=== PATIENT | female | born 1985 | race Caucasian/White ===

== ENCOUNTER 2017-11-17 09:03 | Emergency (ER) | payer BC, OTHER ==
[2017-11-17 10:00] LABS: Urine Appearance Cloudy; Urine Blood 3+ (Negative); Urine Color Yellow; Urine Ketones Negative (Negative); Urine Protein 1+(30 mg/dL) (Negative); Urine Specific Gravity 1.021 (1.010-1.030); Urine Urobilinogen Negative (Negative)
--- NOTE | 2017-11-17 10:00 | RAD ---
INDICATION: Dizziness COMPARISON: None TECHNIQUE: PA and lateral dual-energy views were obtained. FINDINGS: Bones/Soft Tissues: There are no acute bony findings. Cardiomediastinal: The cardiomediastinal silhouette is normal. Lungs: There are no infiltrates. Pleura: There are no pleural effusions. Other: None IMPRESSION: NO ACTIVE DISEASE.
[2017-11-17 10:05] LABS: ABS Basophils 0 10^3/ul (0-0.2); ABS Eosinophils 0.1 10^3/ul (0-0.6); ABS Lymphocytes 1.5 10^3/ul (1.0-4.8); ABS Monocytes 0.4 10^3/ul (0-0.8); ABS Nucleated RBC 0 10^3/ul; Eosinophil % 1.1 % (0-6); Hematocrit 39 % (35-47); Hemoglobin 13.6 g/dl (12.0-16.0); Lymphocyte % 25.4 % (25-47); Mean Corpuscular HGB Conc 35 g/dl (31-36); Mean Corpuscular Hemoglobin 31 pg (27-31); Mean Corpuscular Volume 89 fL (80-97); Mean Platelet Volume 7 um3 (7.4-10.4); Nucleated Red Blood Cells % 0; Platelet Count 237 10^3/ul (150-450); Red Blood Count 4.41 10^6/ul (4.0-5.4); Red Cell Distribution Width 12 % (10.5-15)
[2017-11-17 10:11] LABS: INR 1.01 (0.77-1.02)
[2017-11-17 10:20] LABS: EGFR Non-African American 59.7 (>60)
--- NOTE | 2017-11-17 10:58 | PN ---
Progress Note - Progress Note Date of Service: 11/17/17 Note: pelvic exam PE: I preformed pelvic exam for Dr Ozuna. Exam was limited due to active bleeding. cervix actively bleeding. able to feel IUD string however was unable to visualize. Vaginal canal appears healthy without abnormality other than bleeding. No other discharge or inflammation noted. No bump/lumps. Normal external vaginal exam other than blood on labia. Mild discomfort on bimanual exam with uterus and ovary palpation.
--- NOTE | 2017-11-17 12:23 | RAD ---
INDICATION: Vaginal bleeding. IUD placement. COMPARISON: None TECHNIQUE: Longitudinal and transverse transvaginal scans of the pelvis were obtained. FINDINGS: Uterus: The uterus is normal in size. There are no focal masses. The uterus measures 8.2 x 4.6 x 5.0 cm. Endometrial thickness: The endometrial thickness is measured at 0.8 cm. The IUD is in the cervix.. Free fluid: There is no significant free fluid . Ovaries: The ovaries are normal in size. The right ovary measures 4.5 x 2.3 x 2.0 cm. The left ovary measures 4.2 x 2.9 x 2.2 cm. . Doppler interrogation demonstrates flow to each ovary. Other: None IMPRESSION: THE IUD HAS MIGRATED AND IS LOCATED WITHIN THE CERVIX
[2017-11-17] MEDS ORDERED: NS 0.9% 1000 ML* 1,000 ML IV ONE (12:29)
[2017-11-17 13:24] VITALS: BP 118/72
--- NOTE | 2017-11-19 12:23 | ED ---
Kartik Mix Angela, scribed for Monico Ozuna MD on 11/17/17 at 0927 . GI/ HPI - HPI Summary HPI Summary: This pt is a 32 y/o female [facility] c/o vaginal bleeding x3 days. Pt reports that she had her period for 3 weeks and since 11/15/17, pt has had heavy vaginal bleeding. SHe notes she had an IUD placed in July 2017 and contacted [facility] and was told that they are not sure of the placement. Pt notes she was not able to get an appointment for today as they do not have ultrasound today. She currently reports dizziness and generalized weakness. Denies abdominal cramping. Pt notes she had abd pain and diarrhea, attributed to IBS. PMHx includes IBS, IUD. - History of Current Complaint Chief Complaint: EDDizziness Time Seen by Provider: 11/17/17 09:15 Stated Complaint: DIZZY HEAVY MENSTRUAL BLEEDING Hx Obtained From: Patient Hx Last Menstrual Period: 04/07/15 Onset/Duration: Started Days Ago - 3, Still Present Timing: Lasting Days - 3 Current Severity: Severe Vaginal Bleeding Description: Bright Red Pain Intensity: 0 - no pain Associated Signs and Symptoms: Positive: Dizziness, Weakness. Negative: Nausea , Vomiting, Abdominal Pain Additional Signs & Symptoms: Positive: Vaginal Bleeding Aggravating Factor(s): Nothing Alleviating Factor(s): Nothing - Allergy/Home Medications Allergies/Adverse Reactions: Allergies Allergy/AdvReac Type Severity Reaction Status Date / Time No Known Allergies Allergy Verified 11/17/17 09:14 PMH/Surg Hx/FS Hx/Imm Hx Endocrine/Hematology History: Denies: Hx Diabetes, Hx Thyroid Disease Cardiovascular History: Denies: Hx Hypertension, Hx Pacemaker/ICD Respiratory History: Denies: Hx Asthma, Hx Chronic Obstructive Pulmonary Disease (COPD) GI History: Reports: Hx Irritable Bowel Denies: Hx Ulcer Sensory History: Denies: Hx Hearing Aid Psychiatric History: Denies: Hx Panic Disorder - Surgical History Surgery Procedure, Year, and Place: Infectious Disease History: No Infectious Disease History: Denies: Hx Hepatitis, Hx Human Immunodeficiency Virus (HIV), History Other Infectious Disease, Traveled Outside the [place] in Last 30 Days - Family History Known Family History: Positive: Hypertension - Father, Diabetes - Social History Alcohol Use: None Substance Use Type: Reports: None Smoking Status (MU): Never Smoked Tobacco Review of Systems Negative: Fever, Chills Eyes: Negative ENT: Negative Cardiovascular: Negative Negative: Abdominal Pain Genitourinary: Other - vaginal bleeding Neurological: Other - POS: dizziness Positive: Weakness - generalized All Other Systems Reviewed And Are Negative: Yes Physical Exam - Summary Physical Exam Summary: VITAL SIGNS: Reviewed. GENERAL: Patient is a well-developed and nourished female who is lying comfortable in the stretcher. Patient is not in any acute respiratory distress. HEAD AND FACE: No signs of trauma. No ecchymosis, hematomas or skull depressions. No sinus tenderness. EYES: PERRLA, EOMI x 2, No injected conjunctiva, no nystagmus. EARS: Hearing grossly intact. Ear canals and tympanic membranes are within normal limits. MOUTH: Oropharynx within normal limits. NECK: Supple, trachea is midline, no adenopathy, no JVD, no carotid bruit, no c- spine tenderness, neck with full ROM. CHEST: Symmetric, no tenderness at palpation LUNGS: Clear to auscultation bilaterally. No wheezing or crackles. CVS: Regular rate and rhythm, S1 and S2 present, no murmurs or gallops appreciated. ABDOMEN: Soft, non-tender. No signs of distention. No rebound no guarding, and no masses palpated. Bowel sounds are normal. EXTREMITIES: FROM in all major joints, no edema, no cyanosis or clubbing. NEURO: Alert and oriented x 3. No acute neurological deficits. Speech is normal and follows commands. SKIN: Dry and warm Triage Information Reviewed: Yes Vital Signs On Initial Exam: Initial Vitals Temp Pulse Resp BP Pulse Ox 98.7 F 88 18 133/96 100 11/17/17 09:10 11/17/17 09:10 11/17/17 09:10 11/17/17 09:10 11/17/17 09:10 Vital Signs Reviewed: Yes Diagnostics - Vital Signs Vital Signs Temp Pulse Resp BP Pulse Ox 11/17/17 09:10 98.7 F 88 18 133/96 100 - Laboratory Result Diagrams: 11/17/17 09:50 11/17/17 09:50 Lab Statement: Any lab studies that have been ordered have been reviewed, and results considered in the medical decision making process. - Radiology Chest XR Xray Interpretation: No Acute Changes - IMPRESSION: No active disease. Dr. Laith gale reviewed this radiology report. Radiology Interpretation Completed By: Radiologist - Ultrasound No standard instances Ultrasound Interpretation: Positive (See Comments) - Transvaginal US IMPRESSION : The IUD has migrated and is located within the cervix. Dr. Ozuna has reviewed this radiology report. Ultrasound Interpretation Completed By: Radiologist - EKG 09:51 Cardiac Rate: NL EKG Rhythm: Sinus Rhythm - at 82 bpm EKG Interpretation: No ST elevations. Re-Evaluation - Re-Evaluation First Eval Re-Evaluation Time: 13:13 Comment: I reviewed Dr. Avilez's recommendations and discharge plan with the pt. GIGU Course/Dx - Course Assessment/Plan: This pt is a 32 y/o female presenting to [facility] c/o vaginal bleeding x3 days. Pt reports that she had her period for 3 weeks and since 11/15/17, pt has had heavy vaginal bleeding. SHe notes she had an IUD placed in July 2017 and contacted [facility] and was told that they are not sure of the placement. Pt notes she was not able to get an appointment for today as they do not have ultrasound today. She currently reports dizziness and generalized weakness. Denies abdominal cramping. Test results without any significant abnormalities. Urinalysis shows 3+ blood. Chest XR shows no active disease. Transvaginal US reveals the IUD has migrated and is located within the cervix. Pelvic exam was performed by ROBE Castillo. Please see her progress note. I discussed pt care with Dr. Avilez, Manager Content, who recommends for the pt to be discharged and follow up with the forge tender who placed her IUD and have it removed. Therefore the pt will be discharged to home with follow up from her forge tender. She is instructed to return to the ED for any worsening or new symptoms. Pt understands and agrees. Pt is hemodynamically stable, alert and oriented x3. - Diagnoses Provider Diagnoses: Vaginal bleeding - Physician Notifications Discussed Care Of Patient With: Pradeep Avilez Time Discussed With Above Provider: 13:10 Instructed by Provider To: Other - I discussed pt care with Dr. Avilez, Manager Content, who recommends for the pt to be discharged and follow up with the forge tender who placed her IUD and have it removed. Discharge - Discharge Plan Condition: Stable Disposition: HOME Referrals: [facility] [Provider Group] - As Soon As Possible (Address: [address], [place] [address] ) Tyler Block, CERTIFIED MORTICIAN [Primary Care Provider] - Additional Instructions: Please follow up with the forge tender who placed your IUD to remove it. RETURN TO THE ED FOR ANY WORSENING SYMPTOMS. The documentation as recorded by the Kartik stack Angela accurately reflects the service I personally performed and the decisions made by , Monico Ozuna MD.
== END 2017-11-17 13:32 | disposition home or self-care (01) ==
LOC: ED 09:03
DX: N93.9 Abnormal uterine and vaginal bleeding, unspecified (principal); R42 Dizziness and giddiness; R53.1 Weakness
CPT/HCPCS: 36415; 71046; 76830; 80053; 81003; 81015; 82550; 83605; 83735; 84443; 84702; 85025; 85610; 85730; 86140; 86850; 86900; 86901; 87086; 87480; 87491; 87510; 87591; 87661; 93005; 99283

== ENCOUNTER 2018-12-16 09:11 | Emergency (ER) | payer BC ==
[2018-12-16 09:19] VITALS: BP 136/80
--- NOTE | 2018-12-16 10:31 | UC ---
Respiratory Complaint HPI - HPI Summary HPI Summary: This is a 33-year-old female with a complaint of maxillary sinus discomfort and a headache. She has mild congestion. She is a nonsmoker. This has been going on for 2 days. Nurse's note: sinus pressure worsening x 2 days feverish and achey. - History of Current Complaint Chief Complaint: UCGeneralIllness Stated Complaint: SINUS Time Seen by Provider: 12/16/18 10:26 Hx Last Menstrual Period: 12/10/18 Pain Intensity: 5 - Allergies/Home Medications Allergies/Adverse Reactions: Allergies Allergy/AdvReac Type Severity Reaction Status Date / Time No Known Allergies Allergy Verified 12/16/18 09:19 PMH/Surg Hx/FS Hx/Imm Hx - Additional Past Medical History Additional PMH: PMH: non contributory to present complaint. No hx of frequent sinus infections or chronic headaches. Family hx: DM, CVD. Social hx: works fulltime at [employer]. - Surgical History Surgical History: Yes Surgery Procedure, Year, and Place: x 2 - Family History Known Family History: Positive: Hypertension - Father, Diabetes - Social History Alcohol Use: None Substance Use Type: None Smoking Status (MU): Never Smoked Tobacco - Immunization History Most Recent Influenza Vaccination: fall 2014 Most Recent Tetanus Shot: unknown Most Recent Pneumonia Vaccination: never Review of Systems All Other Systems Reviewed And Are Negative: Yes Constitutional: Positive: Negative Skin: Positive: Negative ENT: Positive: Sinus Congestion, Sinus Pain/Tenderness Respiratory: Positive: Negative. Negative: Shortness Of Breath Cardiovascular: Positive: Negative. Negative: Palpitations Gastrointestinal: Positive: Negative. Negative: Abdominal Pain Is Patient Immunocompromised?: No Physical Exam - Summary Physical Exam Summary: Appearance: The patient is well-appearing, is in no pain or distress, and is well-nourished. Eyes: Conjunctiva are clear. Pupils are equal and reactive to light and accommodation. Extra ocular muscle movement is intact. ENT: The hearing is grossly normal, the pharynx is normal, and the TMs are normal. There is no muffled or hoarse voice. No stridor. Mild tenderness to palpation over the maxillary sinuses. Neck: The neck is supple and there is no lymphadenopathy. Respiratory: The chest is nontender to palpation and without crepitus. The lungs are clear, there are normal breath sounds, and there is no respiratory distress. No wheezes, rales or rhonchi. Cardiovascular: Heart sounds reveal a regular rate and rhythm. There are no clicks, rubs or murmurs. There are no carotid bruits or thrills. Circulation is grossly intact. Abdomen: The abdomen is soft and nontender. There is no organomegaly. Bowel sounds are present and within normal limits. No point tenderness at McBurneys point. Musculoskeletal: Strength is intact. The patient moves all extremities. Neurological: The patient is alert. Motor and sensory are examination grossly intact. Speech is normal. Psychological: The patient displays age appropriate behavior Skin: Negative for rashes. Triage Information Reviewed: Yes Vital Signs: Initial Vital Signs Temp 98 F 12/16/18 09:15 Pulse 100 12/16/18 09:15 Resp 20 12/16/18 09:15 BP 136/80 12/16/18 09:15 Pulse Ox 100 12/16/18 09:15 Vital Signs Reviewed: Yes Respiratory Course/Dx - Course Course Of Treatment: This is a 33-year-old female with a complaint of maxillary sinus discomfort and a headache. She has mild congestion. She is a nonsmoker. This going on for 2 days. Review of systems is otherwise unremarkable. Her past medical history is noncontributory to present complaint. Her family history shows a diabetes mellitus and cardiovascular disease. The patient's social history includes a full-time job at [employer] and 3 children. Physical examination shows mild tenderness to percussion over the maxillary sinuses. I discussed her condition with the patient. She will be started on Keflex. She is requesting small pills. Medications reviewed. Hypertensive status reviewed and discussed with the patient. - Differential Dx/Diagnosis Differential Diagnosis/HQI/PQRI: Influenza, Laryngitis, Sinusitis Provider Diagnosis: Sinusitis Discharge - Sign-Out/Discharge Documenting (check all that apply): Patient Departure All imaging exams completed and their final reports reviewed: No Studies - Discharge Plan Condition: Stable Disposition: HOME Prescriptions: Cephalexin CAP* [Keflex CAP*] 250 mg PO QID #20 cap MDD 4 Patient Education Materials: Sinusitis (ED) Referrals: Tyler Block [facility] [Primary Care Provider] - Additional Instructions: WE DISCUSSED: PLEASE SEEK CARE AT THE EMERGENCY DEPARTMENT IF SYMPTOMS WORSEN OR IF NEW SYMPTOMS DEVELOP. FOLLOW UP WITH YOUR PRIMARY CARE PHYSICIAN IF CONDITION CONTINUES BEYOND 3 DAYS WITHOUT IMPROVEMENT. We are open from 7 a.m. to 10 p.m. Call us with any questions or concerns. YOUR DIAGNOSIS IS: SINUSITIS YOUR PRESCRIPTION RECOMMENDATION IS: KEFLEX FOR 7 DAYS, ONE PILL 4 TIMES A DAY OTHER INSTRUCTIONS: STAND UNDER SHOWER STREAM TO LOOSEN SECRETIONS. USE A VAPORIZOR. STAY AWAY FROM ANY SMOKE OR IRRITANTS. USE SALINE NASAL SPRAY TO KEEP FLOW OF MUCOUS FROM NOSTRILS AND SINUSES. DRINK LOTS OF WARM FLUIDS OTHER USEFUL HOME REMEDIES: WARM WATER GARGLES, WITH TSP OF SALT PER 8 OUNCES OF WATER, GARGLE FOR A FEW SECONDS AND SPIT OUT; GARGLE AND SPIT OUT; EVERY THREE HOURS. AND/OR: WARM WATER OR TEA, HONEY AND LEMON; 2-3 CUPS A DAY. RE-CHECK IN 1O DAYS NEEDED. RE-CHECK SOONER IF INCREASED PAIN OR TEMPERATURE. Hypertension Discharge Instructions: Your blood pressure reading today was 136/80, indicating HYPERTENSION. Follow- up with your primary care provider within 4 weeks for blood pressure check and appropriate recommendations and treatment, as needed. For pain: Ibuprofen (Motrin and other brand names) 400-600mg PLUS acetaminophen (Tylenol and other brand names) 500mg - 1000mg every 8 hours. Maximum is 3 doses a day. If this dosage is required for more than 5 days, you should re-check with your doctor. The combination of these two over-the- counter medications can be more effective than each one taken alone. Please check with the pharmacist if you have questions about your allergies to these medications. - Billing Disposition and Condition Condition: STABLE Disposition: Home
== END 2018-12-16 10:59 | disposition home or self-care (01) ==
LOC: UCEAST 09:11
DX: J32.9 Chronic sinusitis, unspecified (principal)
CPT/HCPCS: 99212; G0463

== ENCOUNTER 2019-03-29 18:13 | Emergency (ER) | payer BC ==
[2019-03-29 18:29] VITALS: BP 126/86
--- NOTE | 2019-03-29 18:31 | UC ---
Hand/Wrist HPI - HPI Summary HPI Summary: 33 yo female presents with RIGHT 4th digit injury. She tells me that about 20min [employer] she was mowing the lawn and a bungee cord ricocheted and impacted her right 4th digit PIP. She had immediate pain followed by bruising and swelling. Decreased ROM. She is right handed. Has not taken anything OTC for discomfort. Denies numbness or tingling. - History Of Current Complaint Chief Complaint: UCUpperExtremity Stated Complaint: FINGER INJURY Time Seen by Provider: 03/29/19 18:30 Hx Obtained From: Patient Hx Last Menstrual Period: 03/11/19 Onset/Duration: Sudden Onset Severity Initially: Severe Severity Currently: Severe Pain Intensity: 10 Pain Scale Used: 0-10 Numeric - Allergies/Home Medications Allergies/Adverse Reactions: Allergies Allergy/AdvReac Type Severity Reaction Status Date / Time No Known Allergies Allergy Verified 03/29/19 18:30 Home Medications: Home Medications Amoxicillin/Potassium Clav [Amox-Clav 250-125 mg Tablet] 1 each PO 03/29/19 [ History] PMH/Surg Hx/FS Hx/Imm Hx - Additional Past Medical History Additional PMH: None - Surgical History Surgical History: Yes Surgery Procedure, Year, and Place: x 2 - Family History Known Family History: Positive: Hypertension - Father, Diabetes - Social History Occupation: Employed Full-time Lives: With Family Alcohol Use: Rare Substance Use Type: None Smoking Status (MU): Never Smoked Tobacco - Immunization History Most Recent Influenza Vaccination: fall 2014 Most Recent Tetanus Shot: unknown Most Recent Pneumonia Vaccination: never Review of Systems All Other Systems Reviewed And Are Negative: Yes Constitutional: Positive: Negative Skin: Positive: Negative Respiratory: Positive: Negative Cardiovascular: Positive: Negative Neurovascular: Positive: Negative Musculoskeletal: Positive: Other: - Right 4th finger injury Neurological: Positive: Negative Psychological: Positive: Negative Physical Exam - Summary Physical Exam Summary: GENERAL: NAD. WDWN. No pain distress. SKIN: No rashes, sores, lesions, or open wounds. CHEST: No accessory muscle use. Breathing comfortably and in no distress. CV: Pulses intact radial and ulnar. Cap refill <2seconds MSK: RIGHT 4th digit: TTP overlying PIP and DIP. NTTP MCP. Decreased ROM at MCP , PIP, and DIP due to pain. NEURO: Alert. Sensations intact hand and all fingers. PSYCH: Age appropriate behavior. Triage Information Reviewed: Yes Vital Signs: Initial Vital Signs Temp 99.8 F 03/29/19 18:26 Pulse 87 03/29/19 18:26 Resp 18 03/29/19 18:26 BP 126/86 03/29/19 18:26 Pulse Ox 100 03/29/19 18:26 Vital Signs Reviewed: Yes Hand/Wrist Course/Dx - Course Course Of Treatment: XR: wet read by myself is negative for fx. Pt was placed in a finger splint and advised to RICE and f/u with Ortho if her symptoms do not improve in 3-5 days. May take tylenol/ibuprofen as directed for discomfort. - Differential Dx/Diagnosis Provider Diagnosis: Finger contusion Discharge - Sign-Out/Discharge Documenting (check all that apply): Patient Departure All imaging exams completed and their final reports reviewed: No - Discharge Plan Condition: Stable Disposition: HOME Patient Education Materials: Contusion in Adults (ED) Referrals: Tyler Block NP [Primary Care Provider] - Juan Guo MD [Medical Doctor] - If Needed Additional Instructions: If you develop a fever, shortness of breath, chest pain, new or worsening symptoms - please call your PCP or go to the ED immediately. The X-Ray of your finger does not appear to have a fracture today. The radiologist will give their official reading in the morning and we will call you with any changes. Use the finger splint for comfort, rest, and apply ice intermittently throughout the day. If your symptoms do not improve in 3-5 days, please call Orthopedics at the number below to schedule an appointment for further evaluation - Billing Disposition and Condition Condition: STABLE Disposition: Home
[2019-03-29] MEDS ORDERED: Ibuprofen TAB* 600 MG PO ONE (18:40)
--- NOTE | 2019-03-30 07:24 | UC ---
- Progress Note Progress Note: Radiologist reading of right ring finger x-ray from March 29, 2019 comes back as soft tissue swelling no fracture. Provider interpretation of the same date did not see a fracture therefore there is no discrepancy. Course/Dx - Diagnoses Provider Diagnoses: Finger contusion Discharge - Sign-Out/Discharge Documenting (check all that apply): Patient Departure All imaging exams completed and their final reports reviewed: Yes - Discharge Plan Condition: Stable Disposition: HOME Patient Education Materials: Contusion in Adults (ED) Forms: *Work Release Referrals: Juan Guo MD [Medical Doctor] - If Needed Tyler Block NP [Primary Care Provider] - Additional Instructions: If you develop a fever, shortness of breath, chest pain, new or worsening symptoms - please call your PCP or go to the ED immediately. The X-Ray of your finger does not appear to have a fracture today. The radiologist will give their official reading in the morning and we will call you with any changes. Use the finger splint for comfort, rest, and apply ice intermittently throughout the day. If your symptoms do not improve in 3-5 days, please call Orthopedics at the number below to schedule an appointment for further evaluation - Billing Disposition and Condition Condition: STABLE Disposition: Home
== END 2019-03-29 19:15 | disposition home or self-care (01) ==
LOC: UCEAST 18:13
DX: S60.041A Contusion of right ring finger without damage to nail, initial encounter (principal); W22.8XXA Striking against or struck by other objects, initial encounter; Y93.H9 Activity, other involving exterior property and land maintenance, building and construction; Y92.017 Garden or yard in single-family (private) house as the place of occurrence of the external cause; Y99.8 Other external cause status
CPT/HCPCS: 73140; 99212; A9270-GY; G0463